=== PATIENT | male | born 1965 | race Caucasian/White ===

== ENCOUNTER 2018-09-06 15:40 | Emergency (ER) | payer OTHER ==
[~2018-09-06] VITALS: Wt 89.0 kg
[~2018-09-06 15:40] MED LIST: CITA20TA11 PO
[2018-09-06 15:43] VITALS: BP 135/76; PULSE 91; RESP 19
[2018-09-06] MEDS ORDERED: CLIN300C10 PO (16:32)
[2018-09-06] MEDS ORDERED: IBUP-1542 PO (16:32)
--- NOTE | 2018-09-06 16:39 | ERD ---
ER Documentation Chief Complaint Chief Complaint bib self, cc: right facial swelling, possible tooth abscess HPI 52-year-old male complaining of right side facial swelling times 2 days. Bola mejia states that he was trying to squeeze a pimple on the right side of face 2 days ago. And the swelling started shortly after that. He tried to squeeze a head yesterday. Reports pain in the face, but denies tooth pain. Denies fever or chills. Denies dysphagia. Patient denies any past medical history. ROS All systems reviewed and are negative except as per history of present illness. Medications Home Meds Active Scripts Ibuprofen* (Motrin*) 600 Mg Tab, 600 MG PO Q6H PRN for PAIN AND OR ELEVATED TEMP, #30 TAB Prov:RAMÍREZ QUESADA [employer] 09/06/18 Clindamycin Hcl* (Clindamycin Hcl*) 300 Mg Capsule, 300 MG PO TID for 10 Days, CAP Prov:RAMÍREZ QUESADA. [employer] 09/06/18 Reported Medications Citalopram Hydrobromide* (Celexa*) 20 Mg Tablet, 20 MG PO DAILY, #30 TAB 06/06/16 Allergies Allergies: Coded Allergies: No Known Allergy (Unverified , 06/06/16) PMhx/Soc History of Surgery: No Anesthesia Reaction: No Hx Neurological Disorder: No Hx Respiratory Disorders: No Hx Cardiac Disorders: No Hx Psychiatric Problems: No Hx Miscellaneous Medical Probl: No Hx Alcohol Use: No Hx Substance Use: No Hx Tobacco Use: No Smoking Status: Never smoker Physical Exam Vitals Vital Signs Date Temp Pulse Resp B/P (MAP) Pulse Ox O2 O2 Flow FiO2 Time Delivery Rate 09/06/18 98.2 91 19 135/76 100 15:43 (95) Physical Exam General: Well-developed, well-nourished, conscious and coherent, in no distress Skin: Warm and dry without rash, good texture and turgor Head: Normocephalic without evidence of trauma Nose/Face: Right-sided facial swelling with several scabs at the angle of the jaw. There is induration in the right face/buccal mucosa, without noticeable induration. No wound discharge. Mouth/throat: Mucous membranes are moist. Posterior pharynx clear without erythema or exudates. Normal dentition and gum Neck: Supple without meningismus or adenopathy. Carotids are equal. Trachea midline. No bruits or JVD Chest: Normal AP diameter. Good expansion without retractions. Nontender. Lungs are clear to auscultate bilaterally with good tidal volume Heart: Regular rate and rhythm. No murmur, rub, or gallops heard Extremities: Full range of motion. Good strength bilaterally. No erythema, ecchymosis, or edema. Peripheral pulses are intact. Sensation intact Neuro: Alert and oriented 4, GCS 15. Procedures/MDM Well-appearing 52-year-old male presents the ED with facial cellulitis. There is no sign of abscess, incision and drainage not indicated at this time. Patient does not appear septic, I doubt systemic infection or necrotizing fasciitis. I doubt toxic shock syndrome, streptococcal scalded disease syndrome, toxic epidermal necrolysis, López-Skuhi syndrome, [place] spotted fever. Patient is given prescription of clindamycin and ibuprofen, and advised to apply the moist heat to the right facial swelling several times daily. Patient was advised to return to ED 2 days for wound check. Incision and drainage may be indicated at that time. Patient appears well, stable for discharge and outpatient management. Medical decision making shared with patient and family. Education provided to patient and family. Patient and family expressed understanding of the plan. Medications on discharge: Clindamycin, ibuprofen. Follow-up: Return to ED in 2 days for recheck, sooner if there is a fever. Disclaimer: Inadvertent spelling and grammatical errors are likely due to EHR/dictation software use and do not reflect on the overall quality of patient care. Also, please note that the electronic time recorded on this note does not necessarily reflect the actual time of the patient encounter. Departure Diagnosis: Primary Impression: Cellulitis Site of cellulitis: face Qualified Codes: L03.211 - Cellulitis of face Condition: Stable Patient Instructions: Cellulitis, Facial Referrals: LEILA PANTOJA MD (PCP) Additional Instructions: Return to this facility in 2 DAYS for a follow-up exam.Return sooner if your condition worsens. RAMÍREZ QUESADA NP Sep 06, 2018 16:39
== END 2018-09-06 16:52 | disposition home or self-care (01) ==
LOC: FTE 15:40
DX: L03.211 Cellulitis of face (principal); R40.2412 Glasgow coma scale score 13-15, at arrival to emergency department
CPT/HCPCS: 99283

== ENCOUNTER 2018-12-31 00:32 | Emergency (ER) | payer OTHER ==
[~2018-12-31] VITALS: Wt 94.9 kg
[~2018-12-31 00:32] MED LIST changes: +CLIN300C10 PO; +IBUP-1542 PO
[2018-12-31] MEDS ORDERED: KETOROLAC 30 MG INJ ONE (02:52)
[2018-12-31] MEDS ORDERED: CEFTRIAXONE 1 GM/50 ML (PMX) 50 ML IVPB ONE ×2 (02:53→04:30)
[2018-12-31] MEDS ORDERED: KETOROLAC 30 MG INJ IV STA (03:23)
[2018-12-31] MEDS ORDERED: CEFTRIAXONE 1 GM INJ IM ONE (03:30)
[2018-12-31] MEDS ORDERED: SOD CHLORIDE 0.9% 1,000 ML IV ONE (03:30)
[2018-12-31] MEDS ORDERED: IBUP-1542 PO (05:09)
[2018-12-31] MEDS ORDERED: CEPH-443 PO (05:09)
[2018-12-31] MEDS ORDERED: SULF1TAB31 PO (05:09)
[2018-12-31 05:20] VITALS: BP 105/63; PULSE 83; RESP 18
--- NOTE | 2019-01-02 14:29 | ERD ---
ER Documentation Chief Complaint Chief Complaint CELLULITIS TO R LOWER LEG X'S 3 DAYS HPI 53-year-old male with no significant past medical history presenting to the emergency department complains of redness and swelling to his right lower leg intermittently for the past 4 days. Symptoms have worsened overall. He does report history of cellulitis in the past. Associated pain is rated 9/10 in severity. He has tried no medication for relief of symptoms. He denies any fevers, chills, or other symptoms at this time. ROS All systems reviewed and are negative except as per history of present illness. Medications Home Meds Active Scripts Ibuprofen* (Motrin*) 600 Mg Tab, 600 MG PO Q6, #30 TAB Prov:JULIANE YUNG PA-C 12/31/18 Sulfamethoxazole/Trimethoprim* (Bactrim Ds* Tablet) 1 Each Tablet, 1 TAB PO BID, #14 TAB Prov:JULIANE YUNG PA-C 12/31/18 Cephalexin* (Keflex*) 500 Mg Capsule, 500 MG PO QID for 7 Days, CAP Prov:JULIANE YUNG PA-C 12/31/18 Ibuprofen* (Motrin*) 600 Mg Tab, 600 MG PO Q6H PRN for PAIN AND OR ELEVATED TEMP, #30 TAB Prov:RAMÍREZ QUESADA [employer] 09/06/18 Clindamycin Hcl* (Clindamycin Hcl*) 300 Mg Capsule, 300 MG PO TID for 10 Days, CAP Prov:RAMÍREZ QUESADA. [employer] 09/06/18 Reported Medications Citalopram Hydrobromide* (Celexa*) 20 Mg Tablet, 20 MG PO DAILY, #30 TAB 06/06/16 Allergies Allergies: Coded Allergies: No Known Allergy (Unverified , 06/06/16) PMhx/Soc History of Surgery: Yes (Bilat arms from dog attack) Anesthesia Reaction: No Hx Neurological Disorder: No Hx Respiratory Disorders: No Hx Cardiac Disorders: No Hx Psychiatric Problems: No Hx Miscellaneous Medical Probl: No Hx Alcohol Use: Yes (Once in a while) Hx Substance Use: Yes (Marijuana daily) Hx Tobacco Use: Yes (Quit cigarettes 2011) Smoking Status: Former smoker FmHx Family History: No diabetes Physical Exam Vitals Vital Signs Date Temp Pulse Resp B/P (MAP) Pulse Ox O2 O2 Flow FiO2 Time Delivery Rate 5/21/19 99.3 83 18 105/63 100 Room Air 05:20 (77) 12/31/18 100.6 92 18 156/80 100 00:36 (105) Physical Exam Const: No acute distress Head: Atraumatic Eyes: Normal Conjunctiva ENT: Normal External Ears, Nose and Mouth. Neck: Full range of motion. No meningismus. Resp: Clear to auscultation bilaterally Cardio: Regular rate and rhythm, no murmurs Skin: Localized erythema noted to the right lower extremity inferior to the right knee. The erythema is circumferential. There is associated warmth. No crepitus on palpation. No lymphatic streaking. No necrosis noted. Back: No midline or flank tenderness Ext: No cyanosis, or edema Neur: Awake and alert Psych: Normal Mood and Affect Result Diagram: 12/31/18 0240 12/31/18 0240 Results 24 hrs Laboratory Tests Test 12/31/18 02:40 01/02/19 08:53 White Blood Count 11.2 10^3/ul Red Blood Count 5.11 10^6/ul Hemoglobin 14.3 g/dl Hematocrit 44.1 % Mean Corpuscular Volume 86.3 fl Mean Corpuscular Hemoglobin 28.0 pg Mean Corpuscular Hemoglobin Concent 32.4 g/dl Red Cell Distribution Width 12.3 % Platelet Count 452 10^3/UL Mean Platelet Volume 10.3 fl Immature Granulocytes % 0.300 % Neutrophils % 74.2 % Lymphocytes % 13.4 % Monocytes % 9.6 % Eosinophils % 1.9 % Basophils % 0.6 % Nucleated Red Blood Cells % 0.0 /100WBC Immature Granulocytes # 0.030 10^3/ul Neutrophils # 8.3 10^3/ul Lymphocytes # 1.5 10^3/ul Monocytes # 1.1 10^3/ul Eosinophils # 0.2 10^3/ul Basophils # 0.1 10^3/ul Nucleated Red Blood Cells # 0.0 10^3/ul Sodium Level 139 mmol/L Potassium Level 4.4 mmol/L Chloride Level 102 mmol/L Carbon Dioxide Level 28 mmol/L Anion Gap 9 Blood Urea Nitrogen 23 mg/dl Creatinine 0.88 mg/dl Est Glomerular Filtrat Rate mL/min > 60 mL/min Glucose Level 119 mg/dl Calcium Level 9.0 mg/dl Lab Scanned Report LAB [id number] Current Medications Medications Dose Sig/Irma Start Time Status Last (Trade) Ordered Route PRN Stop Time Admin Dose Reason Admin Ceftriaxone 1 gm ONCE ONCE 12/31/18 DC Sodium IM 03:30 (Rocephin) 12/31/18 03:31 Ketorolac 30 mg ONCE STAT 12/31/18 DC 12/31/18 Tromethamine IV 03:23 03:29 (Toradol) 12/31/18 03:25 Sodium 1,000 ml @ Q1H ONCE 12/31/18 DC 12/31/18 Chloride 1,000 mls/hr IV 03:30 03:30 12/31/18 04:29 Ceftriaxone 50 ml @ ONCE ONCE 12/31/18 DC 12/31/18 Sodium 100 mls/hr IVPB 04:30 04:05 12/31/18 04:59 Ketorolac 30 mg STK-MED 12/31/18 DC Tromethamine ONCE .ROUTE 02:52 (Toradol) 12/31/18 22:24 Ceftriaxone 50 ml @ ud STK-MED 12/31/18 DC Sodium ONCE IVPB 02:53 01/01/19 17:48 Procedures/MDM 53-year-old male presented to the emergency department with signs and symptoms most consistent with cellulitis of the right lower extremity. The patient was placed on stretcher and was administered IV Rocephin. Laboratory studies show no evidence of significant leukocytosis or anemia. BMP was within normal limits. Patient was stable and appropriate for discharge and further outpatient management with prescription for Keflex and Bactrim and ibuprofen. No evidence of necrotizing fasciitis, ascending cellulitis, deep space infection, compartment syndrome, or other emergencies. Patient was advised to return to the department in 2 days for recheck. He was advised to return sooner for any new or worsening or concerning symptoms. The patient was in agreement with the diagnosis, plan, need for follow-up, return precautions. Departure Diagnosis: Primary Impression: Cellulitis of right lower extremity Condition: Fair Patient Instructions: Cellulitis Additional Instructions: Call your primary care doctor TOMORROW for an appointment during the next 1-2 days.See the doctor sooner or return here if your condition worsens before your appointment time. Return to this facility in 2 DAYS for a follow-up exam.Return sooner if your condition worsens. JULIANE YUNG PA-C January 02, 2019 14:29
== END 2018-12-31 05:20 | disposition home or self-care (01) ==
LOC: FTE 00:32
DX: L03.115 Cellulitis of right lower limb (principal); Z87.891 Personal history of nicotine dependence
CPT/HCPCS: 80048; 85025; 96361; 96365; 96375; J0696; J1885; J7030; Z7502